=== PATIENT | male | born 1955 | race Caucasian/White ===

== ENCOUNTER 2023-10-07 14:18 | Emergency (ER) | payer OTHER, SELFPAY ==
[2023-10-07 14:27] VITALS: BP 131/82
[2023-10-07 14:48] LABS: % Basophils 0.9 % (0-2); % Eosinophils 2.3 % (0-6); % Immature Granulocytes 0.4 % (0-0.5); % Lymphocytes 34.3 % (20.5-51.1); % Monocytes 10.4 % (1.7-9.3); % Neutrophils 51.7 % (42.2-75.2); Absolute Basophils 0.1 10^3/uL (0-0.2); Absolute Eosinophils 0.2 10^3/uL (0-0.7); Absolute Lymphocytes 3.1 10^3/uL (1.2-3.4); Absolute Monocytes 0.9 10^3/uL (0.1-0.6); Absolute Neutrophils 4.7 10^3/uL (1.4-6.5); Hematocrit 40.3 % (39.0-52.0); Hemoglobin 14.7 g/dL (13.0-18.0); Mean Corp Hgb Conc. 36.5 g/dL (33.0-37.0); Mean Corpuscular Hgb 33.3 pg (27.0-31.0); Mean Corpuscular Volume 91.2 fL (80.0-94.0); Mean Platelet Volume 10.4 fL (7.4-10.4); Nucleated Red Blood Cells % 0 % (-); Platelet Count 212 10^3/uL (130-400); Red Blood Cell Count 4.42 10^6/uL (4.70-6.10); Red Cell Dist. Width 12.6 % (11.5-14.5); White Blood Cell Count 9.1 10^3/uL (4.8-10.8)
[2023-10-07 14:55] LABS: ALT (SGPT) 24 U/L (0-50); AST (SGOT) 24 U/L (17-59); Albumin 3.9 g/dl (3.5-5.0); Alkaline Phosphatase 132 U/L (38-126); Blood Urea Nitrogen 20 mg/dl (9-20); Calcium 9.4 mg/dl (8.4-10.2); Carbon Dioxide 23 mmol/L (22-30); Chloride 106 mmol/L (98-107); Glucose 156 mg/dl (70-99); Potassium 4.4 mmol/L (3.5-5.1); Sodium 139 mmol/L (135-145); Total Bilirubin 0.5 mg/dl (0.2-1.3); Total Protein 6.5 g/dl (6.3-8.2); eGFR > 60.00
[2023-10-07] MEDS: MORPHINE SULFATE IV (15:57)
[2023-10-07] MEDS: MORPHINE SULFATE 4 MG IV (16:03)
[2023-10-07 16:04] LABS: Urine Albumin Negative (Neg - Trace); Urine Bilirubin Negative (Negative); Urine Character Clear (Clear); Urine Color Yellow; Urine Glucose Negative (Negative); Urine Ketone Negative (Negative); Urine Leukocyte Negative (Negative); Urine Nitrite Negative (Negative); Urine Occult Blood Negative (Negative); Urine Urobilinogen Negative (Neg - 1+)
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
== END 2023-10-07 17:46 | disposition home or self-care (01) ==
LOC: EMR 14:18
PROVIDERS: EMERGENCY PHYSICIAN Emergency Medicine
DX: R10.9 Unspecified abdominal pain (principal); I44.1 Atrioventricular block, second degree; I25.10 Atherosclerotic heart disease of native coronary artery without angina pectoris; E78.00 Pure hypercholesterolemia, unspecified; E11.9 Type 2 diabetes mellitus without complications; F32.A Depression, unspecified; F41.9 Anxiety disorder, unspecified; G25.81 Restless legs syndrome; G47.30 Sleep apnea, unspecified; F17.200 Nicotine dependence, unspecified, uncomplicated; Z87.442 Personal history of urinary calculi; Z87.820 Personal history of traumatic brain injury; Z90.49 Acquired absence of other specified parts of digestive tract; Z95.0 Presence of cardiac pacemaker
CPT/HCPCS: 99284; 96374; 74177; 80053; 81003; 85025; Q9967

== ENCOUNTER 2023-10-30 17:34 | Emergency (ER) | payer OTHER, SELFPAY ==
[2023-10-30 17:43] VITALS: BP 137/92
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
[2023-10-30] MEDS: DECADRON 10 MG IV (19:42)
[2023-10-30] MEDS: DUONEB 3 ML INH (19:43)
[2023-10-30 19:54] LABS: % Basophils 1.1 % (0-2); % Eosinophils 1.1 % (0-6); % Immature Granulocytes 0.7 % (0-0.5); % Lymphocytes 18.8 % (20.5-51.1); % Monocytes 6.3 % (1.7-9.3); Absolute Basophils 0.1 10^3/uL (0-0.2); Absolute Eosinophils 0.1 10^3/uL (0-0.7); Absolute Immature Granulocytes 0.1 10^3/uL (0-0.05); Absolute Lymphocytes 1.3 10^3/uL (1.2-3.4); Absolute Monocytes 0.5 10^3/uL (0.1-0.6); Absolute Neutrophils 5.1 10^3/uL (1.4-6.5); Hematocrit 43.9 % (39.0-52.0); Hemoglobin 15.9 g/dL (13.0-18.0); Mean Corp Hgb Conc. 36.2 g/dL (33.0-37.0); Mean Corpuscular Hgb 32.2 pg (27.0-31.0); Mean Corpuscular Volume 88.9 fL (80.0-94.0); Mean Platelet Volume 10.4 fL (7.4-10.4); Nucleated Red Blood Cells % 0 % (-); Platelet Count 207 10^3/uL (130-400); Red Blood Cell Count 4.94 10^6/uL (4.70-6.10); Red Cell Dist. Width 12.1 % (11.5-14.5); White Blood Cell Count 7.1 10^3/uL (4.8-10.8)
[2023-10-30 19:58] LABS: ALT (SGPT) 26 U/L (0-50); AST (SGOT) 23 U/L (17-59); Albumin 4.3 g/dl (3.5-5.0); Alkaline Phosphatase 151 U/L (38-126); Blood Urea Nitrogen 16 mg/dl (9-20); Calcium 9.9 mg/dl (8.4-10.2); Carbon Dioxide 25 mmol/L (22-30); Chloride 101 mmol/L (98-107); Glucose 230 mg/dl (70-99); Potassium 4.3 mmol/L (3.5-5.1); Sodium 136 mmol/L (135-145); Total Bilirubin 0.6 mg/dl (0.2-1.3); Total Protein 7.1 g/dl (6.3-8.2); eGFR > 60.00
[2023-10-30] MEDS: MORPHINE SULFATE 4 MG IV (20:52)
[2023-10-31 00:44] VITALS: BP 132/89
== END 2023-10-31 00:45 | disposition home or self-care (01) ==
LOC: EMR 17:34
PROVIDERS: Emergency Medicine; EMERGENCY PHYSICIAN Emergency Medicine; FAMILY PHYSICIAN Internal Medicine
DX: J20.9 Acute bronchitis, unspecified (principal); E04.1 Nontoxic single thyroid nodule; I45.10 Unspecified right bundle-branch block; I44.1 Atrioventricular block, second degree; I25.10 Atherosclerotic heart disease of native coronary artery without angina pectoris; E78.00 Pure hypercholesterolemia, unspecified; E11.9 Type 2 diabetes mellitus without complications; F32.A Depression, unspecified; F41.9 Anxiety disorder, unspecified; G43.909 Migraine, unspecified, not intractable, without status migrainosus; F43.10 Post-traumatic stress disorder, unspecified; G47.30 Sleep apnea, unspecified; G25.81 Restless legs syndrome; K57.90 Diverticulosis of intestine, part unspecified, without perforation or abscess without bleeding; F17.200 Nicotine dependence, unspecified, uncomplicated; Z95.0 Presence of cardiac pacemaker; Z87.820 Personal history of traumatic brain injury; Z87.442 Personal history of urinary calculi; M43.22 Fusion of spine, cervical region; Z98.0 Intestinal bypass and anastomosis status; Z90.49 Acquired absence of other specified parts of digestive tract
CPT/HCPCS: 99285; 71275; 80053; 83880; 84484; 85025; 93005; Q9967

== ENCOUNTER 2023-11-05 13:22 | Emergency (ER) | payer OTHER, SELFPAY ==
[2023-11-05 13:27] VITALS: BP 175/89
--- NOTE | 2023-11-05 15:40 | EDRN ---
Abbi Julien [employer] in room w/ pt at this time.
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
[2023-11-05 15:53] VITALS: BMI 30.6
[2023-11-05] MEDS: DECADRON 10 MG IV (16:06)
[2023-11-05] MEDS: DILAUDID 0.5 MG IV (16:06)
[2023-11-05] MEDS: ZOFRAN 4 MG IV (16:07)
[2023-11-05 17:22] VITALS: BP 121/75
== END 2023-11-05 17:24 | disposition home or self-care (01) ==
LOC: EMR 13:22
PROVIDERS: EMERGENCY PHYSICIAN Emergency Medicine; FAMILY PHYSICIAN Internal Medicine
DX: M54.2 Cervicalgia (principal); I44.1 Atrioventricular block, second degree; I25.10 Atherosclerotic heart disease of native coronary artery without angina pectoris; E78.00 Pure hypercholesterolemia, unspecified; E11.9 Type 2 diabetes mellitus without complications; F32.A Depression, unspecified; F41.9 Anxiety disorder, unspecified; G47.30 Sleep apnea, unspecified; G25.81 Restless legs syndrome; F17.200 Nicotine dependence, unspecified, uncomplicated; Z87.442 Personal history of urinary calculi; Z87.820 Personal history of traumatic brain injury; Z90.49 Acquired absence of other specified parts of digestive tract; Z95.0 Presence of cardiac pacemaker
CPT/HCPCS: 99283; 96374; 96375; 72040

== ENCOUNTER → 2023-12-14 13:34 | Outpatient (REF) | payer OTHER, SELFPAY | LOC: MRI 13:34 | PROVIDERS: ATTENDING PHYSICIAN Orthopaedic Surgery Orthopaedic Surgery of the Spine; FAMILY PHYSICIAN Internal Medicine | DX: M54.2 Cervicalgia (principal) | CPT/HCPCS: 72141 ==

== ENCOUNTER 2024-01-13 18:41 | Emergency (ER) | payer OTHER, SELFPAY ==
[2024-01-13] VITALS (7 sets, daily range): BP systolic 118–137; BP diastolic 78–96
[2024-01-13 19:00] LABS: % Basophils 1.1 % (0-2); % Immature Granulocytes 0.6 % (0-0.5); % Lymphocytes 36.1 % (20.5-51.1); % Monocytes 8.7 % (1.7-9.3); % Neutrophils 50.5 % (42.2-75.2); Absolute Basophils 0.1 10^3/uL (0-0.2); Absolute Eosinophils 0.2 10^3/uL (0-0.7); Absolute Lymphocytes 2.6 10^3/uL (1.2-3.4); Absolute Monocytes 0.6 10^3/uL (0.1-0.6); Absolute Neutrophils 3.6 10^3/uL (1.4-6.5); Hematocrit 39.7 % (39.0-52.0); Hemoglobin 14.4 g/dL (13.0-18.0); Mean Corp Hgb Conc. 36.3 g/dL (33.0-37.0); Mean Corpuscular Hgb 32.1 pg (27.0-31.0); Mean Corpuscular Volume 88.6 fL (80.0-94.0); Mean Platelet Volume 10.6 fL (7.4-10.4); Nucleated Red Blood Cells % 0 % (-); Platelet Count 224 10^3/uL (130-400); Red Blood Cell Count 4.48 10^6/uL (4.70-6.10); Red Cell Dist. Width 12.5 % (11.5-14.5); White Blood Cell Count 7.1 10^3/uL (4.8-10.8)
[2024-01-13 19:08] LABS: INR 1.04; PT 13.4 Sec (11.4-14.6)
[2024-01-13 19:16] LABS: ALT (SGPT) 22 U/L (0-50); AST (SGOT) 20 U/L (17-59); Albumin 4.3 g/dl (3.5-5.0); Alkaline Phosphatase 152 U/L (38-126); Blood Urea Nitrogen 15 mg/dl (9-20); Calcium 9.6 mg/dl (8.4-10.2); Carbon Dioxide 25 mmol/L (22-30); Chloride 106 mmol/L (98-107); Glucose 241 mg/dl (70-99); Sodium 136 mmol/L (135-145); Total Bilirubin 0.5 mg/dl (0.2-1.3); Total Protein 7.1 g/dl (6.3-8.2); eGFR > 60.00
[2024-01-13 19:25] LABS: Troponin I < 0.012 ng/ml
[2024-01-13] MEDS: DILAUDID 0.5 MG IV (22:31)
[2024-01-13 22:57] LABS: Lipase 118 U/L (23-300)
[2024-01-13 23:06] LABS: Troponin I < 0.012 ng/ml
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
[2024-01-14 00:36] VITALS: BP 121/91
[2024-01-14 01:00] VITALS: BP 131/89
[2024-01-14 01:30] VITALS: BP 134/85
[2024-01-14 02:00] VITALS: BP 127/94
[2024-01-14 02:30] VITALS: BP 122/86
== END 2024-01-14 04:07 | disposition home or self-care (01) ==
LOC: EMR 18:41
PROVIDERS: EMERGENCY PHYSICIAN Emergency Medicine; FAMILY PHYSICIAN Internal Medicine
DX: R07.89 Other chest pain (principal); R06.02 Shortness of breath; R03.0 Elevated blood-pressure reading, without diagnosis of hypertension; I45.10 Unspecified right bundle-branch block; I44.1 Atrioventricular block, second degree; I25.10 Atherosclerotic heart disease of native coronary artery without angina pectoris; E78.00 Pure hypercholesterolemia, unspecified; E11.9 Type 2 diabetes mellitus without complications; F32.A Depression, unspecified; F41.9 Anxiety disorder, unspecified; F43.10 Post-traumatic stress disorder, unspecified; K57.92 Diverticulitis of intestine, part unspecified, without perforation or abscess without bleeding; G43.909 Migraine, unspecified, not intractable, without status migrainosus; G25.81 Restless legs syndrome; G47.30 Sleep apnea, unspecified; F17.200 Nicotine dependence, unspecified, uncomplicated; Z95.0 Presence of cardiac pacemaker; M43.22 Fusion of spine, cervical region; Z87.442 Personal history of urinary calculi; Z87.820 Personal history of traumatic brain injury; Z98.0 Intestinal bypass and anastomosis status; Z90.49 Acquired absence of other specified parts of digestive tract; Z88.8 Allergy status to other drugs, medicaments and biological substances
CPT/HCPCS: 99285; 96374; 71046; 71275; 80053; 83690; 84484; 85025; 85610; 93005; Q9967

== ENCOUNTER 2024-03-26 12:55 | Emergency (ER) | payer OTHER, SELFPAY ==
[2024-03-26 13:03] VITALS: BP 157/87
[2024-03-26 13:38] LABS: % Basophils 0.8 % (0-2); % Immature Granulocytes 0.2 % (0-0.5); % Monocytes 8.5 % (1.7-9.3); % Neutrophils 56.5 % (42.2-75.2); Absolute Basophils 0.1 10^3/uL (0-0.2); Absolute Eosinophils 0.1 10^3/uL (0-0.7); Absolute Lymphocytes 2.1 10^3/uL (1.2-3.4); Absolute Monocytes 0.6 10^3/uL (0.1-0.6); Absolute Neutrophils 3.7 10^3/uL (1.4-6.5); Hematocrit 42.1 % (39.0-52.0); Hemoglobin 15.5 g/dL (13.0-18.0); Mean Corp Hgb Conc. 36.8 g/dL (33.0-37.0); Mean Corpuscular Hgb 33.5 pg (27.0-31.0); Mean Corpuscular Volume 90.9 fL (80.0-94.0); Mean Platelet Volume 10.9 fL (7.4-10.4); Nucleated Red Blood Cells % 0 % (-); Platelet Count 181 10^3/uL (130-400); Red Blood Cell Count 4.63 10^6/uL (4.70-6.10); Red Cell Dist. Width 12.3 % (11.5-14.5); White Blood Cell Count 6.6 10^3/uL (4.8-10.8)
[2024-03-26 13:51] LABS: ALT (SGPT) 24 U/L (0-50); AST (SGOT) 23 U/L (17-59); Albumin 4.4 g/dl (3.5-5.0); Alkaline Phosphatase 95 U/L (38-126); Blood Urea Nitrogen 16 mg/dl (9-20); Calcium 9.6 mg/dl (8.4-10.2); Carbon Dioxide 22 mmol/L (22-30); Chloride 107 mmol/L (98-107); Glucose 122 mg/dl (70-99); Potassium 4.1 mmol/L (3.5-5.1); Sodium 138 mmol/L (135-145); Total Bilirubin 0.6 mg/dl (0.2-1.3); Total Protein 6.8 g/dl (6.3-8.2); eGFR > 60.00
[2024-03-26 13:59] LABS: Troponin I < 0.012 ng/ml
[2024-03-26 14:41] VITALS: BMI 28.2
[2024-03-26 14:54] VITALS: BP 164/147
[2024-03-26 15:00] VITALS: BP 111/84
[2024-03-26] MEDS: TORADOL 15 MG IV (15:00)
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
[2024-03-26] MEDS: MORPHINE SULFATE 4 MG IV (16:18)
[2024-03-26 16:35] VITALS: BP 111/84
== END 2024-03-26 18:19 | disposition home or self-care (01) ==
LOC: EMR 12:55
PROVIDERS: Emergency Medicine; EMERGENCY PHYSICIAN Emergency Medicine; FAMILY PHYSICIAN Internal Medicine
DX: R07.89 Other chest pain (principal); I44.1 Atrioventricular block, second degree; E11.9 Type 2 diabetes mellitus without complications; E78.00 Pure hypercholesterolemia, unspecified; I25.10 Atherosclerotic heart disease of native coronary artery without angina pectoris; F32.A Depression, unspecified; F41.9 Anxiety disorder, unspecified; F43.10 Post-traumatic stress disorder, unspecified; K57.90 Diverticulosis of intestine, part unspecified, without perforation or abscess without bleeding; G43.909 Migraine, unspecified, not intractable, without status migrainosus; G25.81 Restless legs syndrome; G47.30 Sleep apnea, unspecified; F17.200 Nicotine dependence, unspecified, uncomplicated; Z95.0 Presence of cardiac pacemaker; Z87.820 Personal history of traumatic brain injury; Z87.442 Personal history of urinary calculi; Z98.0 Intestinal bypass and anastomosis status; M43.22 Fusion of spine, cervical region; Z88.8 Allergy status to other drugs, medicaments and biological substances
CPT/HCPCS: 99285; 96374; 96375; 93288; 71046; 71275; 80053; 84484; 85025; 93005; Q9967

== ENCOUNTER 2024-05-21 15:01 | Emergency (ER) | payer OTHER, SELFPAY ==
[2024-05-21 15:03] VITALS: BP 155/94
[2024-05-21 15:14] VITALS: BP 149/90
[2024-05-21] MEDS: NSS 1000 IV (15:28)
[2024-05-21] MEDS: ZOFRAN 4 MG IV (15:28)
[2024-05-21] MEDS: DILAUDID 1 MG IV ×2 (15:30→16:12)
[2024-05-21 15:35] VITALS: BMI 27.9
[2024-05-21 15:40] LABS: % Basophils 1.1 % (0-2); % Eosinophils 3.4 % (0-6); % Immature Granulocytes 0.6 % (0-0.5); % Lymphocytes 36.1 % (20.5-51.1); % Monocytes 9.3 % (1.7-9.3); % Neutrophils 49.5 % (42.2-75.2); Absolute Basophils 0.1 10^3/uL (0-0.2); Absolute Eosinophils 0.3 10^3/uL (0-0.7); Absolute Immature Granulocytes 0.1 10^3/uL (0-0.05); Absolute Lymphocytes 3.1 10^3/uL (1.2-3.4); Absolute Monocytes 0.8 10^3/uL (0.1-0.6); Absolute Neutrophils 4.2 10^3/uL (1.4-6.5); Hematocrit 40.7 % (39.0-52.0); Hemoglobin 14.7 g/dL (13.0-18.0); Mean Corp Hgb Conc. 36.1 g/dL (33.0-37.0); Mean Corpuscular Hgb 32.1 pg (27.0-31.0); Mean Corpuscular Volume 88.9 fL (80.0-94.0); Mean Platelet Volume 11.2 fL (7.4-10.4); Nucleated Red Blood Cells % 0 % (-); Platelet Count 217 10^3/uL (130-400); Red Blood Cell Count 4.58 10^6/uL (4.70-6.10); Red Cell Dist. Width 12.1 % (11.5-14.5); White Blood Cell Count 8.5 10^3/uL (4.8-10.8)
[2024-05-21 15:41] LABS: Urine Albumin Negative (Neg - Trace); Urine Bilirubin Negative (Negative); Urine Character Clear (Clear); Urine Color Yellow; Urine Glucose Negative (Negative); Urine Ketone Negative (Negative); Urine Leukocyte Negative (Negative); Urine Nitrite Negative (Negative); Urine Occult Blood Negative (Negative); Urine Specific Gravity 1.005 (<1.030); Urine Urobilinogen Negative (Neg - 1+)
[2024-05-21 15:53] LABS: ALT (SGPT) 29 U/L (0-50); AST (SGOT) 21 U/L (17-59); Albumin 4.3 g/dl (3.5-5.0); Alkaline Phosphatase 106 U/L (38-126); Blood Urea Nitrogen 11 mg/dl (9-20); Calcium 9.6 mg/dl (8.4-10.2); Carbon Dioxide 24 mmol/L (22-30); Chloride 106 mmol/L (98-107); Estimated Creatinine Clearance 98 ml/min; Glucose 188 mg/dl (70-99); Potassium 4.7 mmol/L (3.5-5.1); Sodium 140 mmol/L (135-145); Total Bilirubin 0.6 mg/dl (0.2-1.3); Total Protein 6.7 g/dl (6.3-8.2); eGFR > 60.00
[2024-05-21 16:23] VITALS: BP 109/75
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
[2024-05-21] MEDS: AUGMENTIN 875 MG/125 MG 1 TABLET PO (18:30)
[2024-05-21] MEDS: DILAUDID 0.5 MG IV (18:31)
== END 2024-05-21 19:21 | disposition home or self-care (01) ==
LOC: EMR 15:01
PROVIDERS: EMERGENCY PHYSICIAN Emergency Medicine; FAMILY PHYSICIAN Internal Medicine
DX: R10.9 Unspecified abdominal pain (principal); I44.1 Atrioventricular block, second degree; I25.10 Atherosclerotic heart disease of native coronary artery without angina pectoris; E78.00 Pure hypercholesterolemia, unspecified; E11.9 Type 2 diabetes mellitus without complications; F41.8 Other specified anxiety disorders; G25.81 Restless legs syndrome; G47.30 Sleep apnea, unspecified; F17.200 Nicotine dependence, unspecified, uncomplicated; Z87.442 Personal history of urinary calculi; Z87.820 Personal history of traumatic brain injury; Z90.49 Acquired absence of other specified parts of digestive tract; Z95.0 Presence of cardiac pacemaker
CPT/HCPCS: 99284; 96374; 96375; 96376; 96361; 74176; 80053; 81003; 85025

== ENCOUNTER 2024-08-31 21:29 | Observation (INO) | payer OTHER, SELFPAY ==
[2024-08-31] VITALS (12 sets, daily range): BP systolic 102–160; BP diastolic 72–92; BMI 27.4; BMI 27.2
[2024-08-31 16:20] LABS: % Basophils 0.8 % (0-2); % Immature Granulocytes 0.3 % (0-0.5); % Lymphocytes 33.2 % (20.5-51.1); % Monocytes 10.1 % (1.7-9.3); % Neutrophils 52.6 % (42.2-75.2); Absolute Basophils 0.1 10^3/uL (0-0.2); Absolute Eosinophils 0.2 10^3/uL (0-0.7); Absolute Lymphocytes 2.4 10^3/uL (1.2-3.4); Absolute Monocytes 0.7 10^3/uL (0.1-0.6); Absolute Neutrophils 3.9 10^3/uL (1.4-6.5); Hematocrit 45.1 % (39.0-52.0); Mean Corp Hgb Conc. 35.5 g/dL (33.0-37.0); Mean Corpuscular Hgb 32.5 pg (27.0-31.0); Mean Corpuscular Volume 91.7 fL (80.0-94.0); Mean Platelet Volume 10.5 fL (7.4-10.4); Nucleated Red Blood Cells % 0 % (-); Platelet Count 197 10^3/uL (130-400); Red Blood Cell Count 4.92 10^6/uL (4.70-6.10); Red Cell Dist. Width 12.2 % (11.5-14.5); White Blood Cell Count 7.3 10^3/uL (4.8-10.8)
[2024-08-31 16:28] LABS: INR 0.93; PT 12.8 Sec (11.4-14.6)
[2024-08-31 16:42] LABS: ALT (SGPT) 29 U/L (0-50); AST (SGOT) 28 U/L (17-59); Albumin 4.8 g/dl (3.5-5.0); Alkaline Phosphatase 108 U/L (38-126); Blood Urea Nitrogen 15 mg/dl (9-20); Calcium 9.6 mg/dl (8.4-10.2); Carbon Dioxide 26 mmol/L (22-30); Chloride 102 mmol/L (98-107); Glucose 153 mg/dl (70-99); Potassium 4.7 mmol/L (3.5-5.1); Sodium 138 mmol/L (135-145); Total Bilirubin 0.6 mg/dl (0.2-1.3); Total Protein 7.6 g/dl (6.3-8.2); eGFR > 60.00
[2024-08-31 16:56] LABS: Troponin I < 0.012 ng/ml
--- NOTE | 2024-08-31 18:08 | EDRN ---
Pt states he had really bad chest pain in substernal area at 14:45 when [address] someone home from [place] at 05/20 described as pressure and radiating to L neck and L upper arm.
--- NOTE | 2024-08-31 18:12 | EDRN ---
Lisa PEREZ in room w/pt at this time.
[2024-08-31] MEDS: NITROSTAT (SUBLINGUAL) 0.4 MG SL ×3 (18:20→18:31)
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
[2024-08-31 19:39] LABS: Troponin I < 0.012 ng/ml
[2024-08-31] MEDS: MORPHINE SULFATE 4 MG IV (20:38)
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
[2024-08-31 21:51] LABS: NT-proBNP 26.8 pg/ml
[2024-08-31] MEDS: LIPITOR 40 MG PO (23:41)
[2024-08-31] MEDS: MORPHINE SULFATE 2 MG IV (23:42)
[2024-08-31 23:56] LABS: Troponin I < 0.012 ng/ml
--- NOTE | 2024-09-01 00:31 | PTCARENOTE ---
22:19 pt rec'vd from ED . pt able to transfer self to bed, tele monitored placed, pt vs stable, oriented to unit
[2024-09-01 03:15] VITALS: BP 115/73
[2024-09-01 06:00] VITALS: BMI 27.2
[2024-09-01] MEDS: MORPHINE SULFATE 2 MG IV (06:03)
[2024-09-01 07:00] VITALS: BP 140/69
[2024-09-01 07:06] LABS: Hemoglobin 15.2 g/dL (13.0-18.0); Mean Corp Hgb Conc. 36.2 g/dL (33.0-37.0); Mean Corpuscular Hgb 33.3 pg (27.0-31.0); Mean Corpuscular Volume 91.9 fL (80.0-94.0); Platelet Count 171 10^3/uL (130-400); Red Blood Cell Count 4.57 10^6/uL (4.70-6.10); Red Cell Dist. Width 12.1 % (11.5-14.5); White Blood Cell Count 6.9 10^3/uL (4.8-10.8)
[2024-09-01 07:24] LABS: Blood Urea Nitrogen 18 mg/dl (9-20); Calcium 9.1 mg/dl (8.4-10.2); Carbon Dioxide 24 mmol/L (22-30); Chloride 104 mmol/L (98-107); Estimated Creatinine Clearance 88 ml/min; Glucose 111 mg/dl (70-99); Potassium 4.4 mmol/L (3.5-5.1); Sodium 136 mmol/L (135-145); eGFR > 60.00
[2024-09-01 07:25] LABS: Troponin I < 0.012 ng/ml
--- NOTE | 2024-09-01 07:57 | W.PN.HOSP.TC ---
Addendum entered and electronically signed by Sekou Turner MD 09/01/24 15:25:
Patient with normal stress test and cardiology is cleared the patient for discharge.
Total time spent on d/c = 40 min. This included today's physical exam, progress note, review of laboratory and diagnostic data, preparation of discharge documents and prescriptions, and discussions about the pt's hospital course and discharge plan
with the patient and other medical record specialist involved in the patient's care.
Original Note:
Today's Communication/Plan
-
see plan
Assessment / Plan
Assessment / Plan
Gen: NAD, AAOx3.
Eyes: EOMI, PERRLA, no scleral icterus.
Neck: supple.
CV: RRR, +S1/S2, no m/r/g.
Resp: CTAB, no rales, wheezes, or rhonchi.
Abd: +BS, soft, NT, ND
Skin: No rashes.
Neuro: CN 2-12 intact, non-focal.
Psych: Normal mood and affect.
Chest Pain:
-Consult Cardiology
-Prior cardiac cath in 2019 with non-obstructive coronary artery disease
-Troponin negative x 4
-Continue ASA/statin
-check echo
DM2
-Patient reports he lost 35lbs and was able to come off all meds
-Check HgbA1c
Other problems:
Hyperlipidemia: Continue atorvastatin
Anxiety/PTSD: Continue Viibryd
Restless Leg Syndrome: Continue pramipexole
GERD: Continue Protonix
Tobacco Use Disorder: Encourage smoking cessation
FULL/Lovenox
Anticipated Discharge: Within 24 hours
Subjective/Interval History
-
Date of Service: September 01, 2024
No chest pain currently.
Objective Data
-
Labs:
Laboratory Results
09/01/24
06:17
WBC 6.9
Hgb 15.2
Hct 42.0
Plt Count 171
Sodium 136
Potassium 4.4
Chloride 104
Carbon Dioxide 24
BUN 18
Creatinine 1.0
Glucose 111 H
Calcium 9.1
Vital Signs:
Vital Signs
Temp Pulse Resp BP Pulse Ox
98.3 F 63 18 140/69 98
09/01/24 07:00 09/01/24 07:00 09/01/24 07:00 09/01/24 07:00 09/01/24 07:00
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
[2024-09-01] MEDS: PROTONIX 40 MG PO (09:03)
[2024-09-01] MEDS: VITAMIN D3 (cholecalciferol) 25 MCG PO (09:04)
[2024-09-01] MEDS: LOW STRENGTH ASPIRIN 81 MG PO (09:04)
[2024-09-01] MEDS: NEURONTIN 800 MG PO (09:04)
[2024-09-01 09:07] LABS: Glycohemoglobin (HgbA1c) 6.6 % (4.0-5.6)
[2024-09-01 10:41] LABS: HDL Cholesterol 24 mg/dl; LDL Cholesterol, Calculated 134 mg/dl; Total Cholesterol 204 mg/dl (50-199); Triglyceride 234 mg/dl (10-149); Very Low Density Lipoprotein 46 mg/dl (0-30)
--- NOTE | 2024-09-01 11:10 | CM ---
Met with pt at bedside
Pt reports he lives with his , son and 3 grandchildren in a 2 story home; 2 steps to enter, FF set-up
Retired, independent with ADL's, drives
DME - none
SNF/HH -denies past hx
Has ride at discharge
PCP - Chloe Mario
Pharm - [facility]
Given AVILA
Plan - anticipate home no needs
[2024-09-01 15:00] VITALS: BP 142/88
--- NOTE | 2024-09-01 15:28 | W.DCSUMMARY ---
Discharge Summary
Discharge Data
Date of Admission: 08/31/24
Date of Discharge: 09/01/24
-
Pending Results: No
Hospital Course
Primary diagnoses:
Noncardiac chest pain
Secondary diagnoses:
Type 2 diabetes mellitus
Hyperlipidemia
Anxiety
Posttraumatic stress disorder
Restless leg syndrome
Gastroesophageal reflux disease
Tobacco abuse disorder
Consults:
Cardiology
Imaging:
Echo: Normal left ventricular size and systolic function. No regional wall motion
abnormalities are seen. LV ejection fraction is 65-70% by Watkins's method of
discs. Mild concentric left ventricular hypertrophy. Normal diastolic function.
Normal right ventricular size. Normal right ventricular systolic function.
Pacer wire seen in right ventricle.
Mild mitral regurgitation.
Aortic root mildly dilated at 3.9cm.
Compared to the previous echo 08/16/21, there is no significant change.
SPECT-sestamibi exercise stress test: Exercise nuclear stress test reveals normal perfusion with no significant ischemia or scar at 11` Mets
The exercise tolerance is above average for given age and gender.
Stress Risk is low risk.
([place] Treadmill Score = +10.75)
Systolic function is normal. The ejection fraction is 53%.
Compared with the study performed on 05/24/2011, There is no significant change.
CXR: No acute cardiopulmonary process.
Hospital course: 69-year-old male who presented yesterday with a chief complaint of chest pain as outlined in the H&P done on admission. The patient had 4 negative troponins. He had an echocardiogram above which was notable for an ejection
fraction of 65 to 70% and was without significant change from his echo in August 2021. Patient had an exercise nuclear stress test that did not show any stress-induced/reversible ischemia. Patient was seen in consultation by cardiology and
cleared for discharge.
Discharge Plan
-
Patient Disposition: Home (Routine Discharge)
Discharge Diagnosis/Procedures: Noncardiac chest pain
Condition: Good
Diet: Low Cholesterol, Low Sodium and Diabetic, Carb Controlled
Activity: No restrictions
Driving Restrictions: As prior to admission
Bathing Restrictions: None
Referrals:
Daisy Horne PA-C [Specified Professional Personl] - 10/01/24 8:20 am (You have cardiology follow-up with Daisy Horne PA-C on October 01 at 8:20 AM in [address] [facility] [address] [facility] if you are unable to make this appointment please call [phone] to
reschedule)
Chloe Mario MD [Family Provider] - in less than 1 week
Prescriptions:
Continued
pramipexole 0.5 MG tablet
0.5 mg PO HSPRN PRN (Reason: restless legs)
atorvastatin 40 MG tablet
40 mg PO HS
buspirone 10 mg Tablet
20 mg PO TID
pantoprazole [Protonix] 40 mg tablet,delayed release (DR/EC)
40 mg PO BID
cetirizine [Zyrtec] 10 mg Tablet
10 mg PO DAILYPRN PRN (Reason: allergies)
sumatriptan succinate 50 mg Tablet
50 mg PO DAILYPRN PRN (Reason: headache)
therapeutic multivitamin Tablet
1 tab PO DAILY
sildenafil 100 mg Tablet
100 mg PO DAILYPRN PRN (Reason: ed)
gabapentin 800 mg Tablet
800 mg PO BID
gabapentin 800 mg Tablet
400 mg PO NOON
fluticasone propionate 50 mcg/actuation [place],Suspension
1 spray INTRANASAL DAILYPRN PRN (Reason: congestion)
eszopiclone [Lunesta] 1 mg Tablet
1 mg PO HSPRN PRN (Reason: sleep)
cholecalciferol (vitamin D3) [Vitamin D3] 25 mcg (1,000 unit) Tablet
25 mcg PO DAILY
vilazodone [Viibryd] 40 mg Tablet
40 mg PO DAILY
albuterol sulfate 90 mcg/actuation HFA aerosol inhaler
2 puff inhalation R Q6HPRN PRN (Reason: shortness of breath or wheezing)
Discharge Orders:
Discharge Patient (As Directed); Ordered 09/01/24
Ordered By: Sekou Turner
Discharge Date and Time
Print Language: AZERBAIJANI
== END 2024-09-01 16:20 | disposition home or self-care (01) ==
LOC: 2 SOUTH 21:29
PROVIDERS: Clinical Nurse Specialist Family Health; Emergency Medicine; Physician Assistant Medical; ADMITTING PHYSICIAN Internal Medicine; ATTENDING PHYSICIAN Internal Medicine; CONSULT PHYSICIAN Internal Medicine Cardiovascular Disease; EMERGENCY PHYSICIAN Emergency Medicine; FAMILY PHYSICIAN Internal Medicine
DX: R07.89 Other chest pain (principal); M79.602 Pain in left arm; R68.84 Jaw pain; R19.7 Diarrhea, unspecified; R42 Dizziness and giddiness; G47.33 Obstructive sleep apnea (adult) (pediatric); I25.10 Atherosclerotic heart disease of native coronary artery without angina pectoris; G25.81 Restless legs syndrome; E78.00 Pure hypercholesterolemia, unspecified; E11.9 Type 2 diabetes mellitus without complications; M54.2 Cervicalgia; F32.A Depression, unspecified; F41.9 Anxiety disorder, unspecified; F43.10 Post-traumatic stress disorder, unspecified; F17.200 Nicotine dependence, unspecified, uncomplicated; I45.10 Unspecified right bundle-branch block; Q07.00 Arnold-Chiari syndrome without spina bifida or hydrocephalus; K21.9 Gastro-esophageal reflux disease without esophagitis; G89.29 Other chronic pain; Z82.41 Family history of sudden cardiac death; Z87.820 Personal history of traumatic brain injury; Z87.442 Personal history of urinary calculi; I34.0 Nonrheumatic mitral (valve) insufficiency; Z90.49 Acquired absence of other specified parts of digestive tract; Z95.0 Presence of cardiac pacemaker; Z98.1 Arthrodesis status; Z79.4 Long term (current) use of insulin; Z88.8 Allergy status to other drugs, medicaments and biological substances
CPT/HCPCS: 71046; 78452; 80048; 80053; 80061; 83036; 83880; 84484; 85025; 85027; 85610; 93005; 93017; 93306; 96374; 99285; A9500; G0378

== ENCOUNTER 2024-11-12 19:48 | Emergency (ER) | payer OTHER, SELFPAY ==
[2024-11-12 19:49] VITALS: BP 146/80
[2024-11-12 20:00] VITALS: BP 132/74
[2024-11-12] MEDS: TORADOL 15 MG IV (20:35)
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
== END 2024-11-12 20:36 | disposition home or self-care (01) ==
LOC: EMR 19:48
PROVIDERS: EMERGENCY PHYSICIAN Emergency Medicine
DX: S20.212A Contusion of left front wall of thorax, initial encounter (principal); W01.198A Fall on same level from slipping, tripping and stumbling with subsequent striking against other object, initial encounter; I25.10 Atherosclerotic heart disease of native coronary artery without angina pectoris; E78.00 Pure hypercholesterolemia, unspecified; E11.9 Type 2 diabetes mellitus without complications; F17.200 Nicotine dependence, unspecified, uncomplicated; G47.30 Sleep apnea, unspecified; Z87.820 Personal history of traumatic brain injury; Z95.0 Presence of cardiac pacemaker
CPT/HCPCS: 96374; 99284; 71101

== ENCOUNTER 2024-12-05 09:34 | Emergency (ER) | payer OTHER, SELFPAY ==
[2024-12-05 09:45] VITALS: BP 172/96
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
[2024-12-05 10:57] VITALS: BP 149/88
[2024-12-05 10:58] VITALS: BMI 27.1
[2024-12-05 11:00] VITALS: BP 142/92
[2024-12-05 11:06] LABS: % Eosinophils 2.8 % (0-6); % Immature Granulocytes 0.3 % (0-0.5); % Monocytes 10.5 % (1.7-9.3); % Neutrophils 56.4 % (42.2-75.2); Absolute Basophils 0.1 10^3/uL (0-0.2); Absolute Eosinophils 0.2 10^3/uL (0-0.7); Absolute Lymphocytes 2.1 10^3/uL (1.2-3.4); Absolute Monocytes 0.7 10^3/uL (0.1-0.6); Hematocrit 42.8 % (39.0-52.0); Hemoglobin 15.6 g/dL (13.0-18.0); Mean Corp Hgb Conc. 36.4 g/dL (33.0-37.0); Mean Corpuscular Hgb 32.9 pg (27.0-31.0); Mean Corpuscular Volume 90.3 fL (80.0-94.0); Mean Platelet Volume 10.7 fL (7.4-10.4); Nucleated Red Blood Cells % 0 % (-); Platelet Count 188 10^3/uL (130-400); Red Blood Cell Count 4.74 10^6/uL (4.70-6.10); Red Cell Dist. Width 11.9 % (11.5-14.5); White Blood Cell Count 7.1 10^3/uL (4.8-10.8)
[2024-12-05 11:20] LABS: Blood Urea Nitrogen 13 mg/dl (9-20); Calcium 9.7 mg/dl (8.4-10.2); Carbon Dioxide 25 mmol/L (22-30); Chloride 106 mmol/L (98-107); D-Dimer 0.29 ug/mlFEU (0.00-0.50); Estimated Creatinine Clearance 98 ml/min; Glucose 151 mg/dl (70-99); Potassium 4.3 mmol/L (3.5-5.1); Sodium 138 mmol/L (135-145); eGFR > 60.00
[2024-12-05 11:26] LABS: COVID-19 Antigen Negative (Negative)
[2024-12-05 11:31] LABS: Troponin I < 0.012 ng/ml
[2024-12-05 13:52] VITALS: BP 154/87
[2024-12-05 13:55] VITALS: BP 154/87
[2024-12-05 14:07] VITALS: BP 154/87
== END 2024-12-05 14:10 | disposition home or self-care (01) ==
LOC: EMR 09:34
PROVIDERS: EMERGENCY PHYSICIAN Emergency Medicine; FAMILY PHYSICIAN Family Medicine
DX: J40 Bronchitis, not specified as acute or chronic (principal); R03.0 Elevated blood-pressure reading, without diagnosis of hypertension; Z11.52 Encounter for screening for COVID-19; Z95.0 Presence of cardiac pacemaker; F17.200 Nicotine dependence, unspecified, uncomplicated
CPT/HCPCS: 99285; 93288; 71046; 80048; 84484; 85025; 85379; 87502; 87811; 93005

== ENCOUNTER 2025-03-23 20:58 | Emergency (ER) | payer OTHER, SELFPAY ==
[2025-03-23 21:00] VITALS: BP 167/98
[2025-03-23 21:29] LABS: Hematocrit 41.6 % (39.0-52.0); Hemoglobin 15.2 g/dL (13.0-18.0); Mean Corp Hgb Conc. 36.5 g/dL (33.0-37.0); Mean Corpuscular Volume 91.0 fL (80.0-94.0); Nucleated Red Blood Cells % 0 % (-); Platelet Count 226 10^3/uL (130-400); Red Cell Dist. Width 12.0 % (11.5-14.5)
[2025-03-23 22:11] LABS: ALT (SGPT) 28 U/L (0-50); AST (SGOT) 18 U/L (17-59); Albumin 4.4 g/dl (3.5-5.0); Alkaline Phosphatase 135 U/L (38-126); Blood Urea Nitrogen 15 mg/dl (9-20); Calcium 9.3 mg/dl (8.4-10.2); Carbon Dioxide 26 mmol/L (22-30); Chloride 106 mmol/L (98-107); Glucose 291 mg/dl (70-99); Potassium 4.0 mmol/L (3.5-5.1); Sodium 137 mmol/L (135-145); Total Protein 7.1 g/dl (6.3-8.2); eGFR > 60.00
[2025-03-23 22:14] LABS: Troponin I < 0.012 ng/ml
[2025-03-23 23:33] VITALS: BP 121/94
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
[2025-03-24] VITALS: BP 131/82
[2025-03-24 00:48] VITALS: BMI 27.0
[2025-03-24 01:00] VITALS: BP 116/74
== END 2025-03-24 02:54 | disposition home or self-care (01) ==
LOC: EMR 20:58
PROVIDERS: EMERGENCY PHYSICIAN Emergency Medicine; FAMILY PHYSICIAN Internal Medicine
DX: R20.2 Paresthesia of skin (principal); R20.0 Anesthesia of skin; R42 Dizziness and giddiness; R11.0 Nausea; G25.81 Restless legs syndrome; I25.10 Atherosclerotic heart disease of native coronary artery without angina pectoris; I44.1 Atrioventricular block, second degree; E78.00 Pure hypercholesterolemia, unspecified; E11.9 Type 2 diabetes mellitus without complications; F32.A Depression, unspecified; F41.9 Anxiety disorder, unspecified; F43.10 Post-traumatic stress disorder, unspecified; K57.92 Diverticulitis of intestine, part unspecified, without perforation or abscess without bleeding; G43.909 Migraine, unspecified, not intractable, without status migrainosus; G47.30 Sleep apnea, unspecified; F17.200 Nicotine dependence, unspecified, uncomplicated; M43.22 Fusion of spine, cervical region; Z95.0 Presence of cardiac pacemaker; Z87.820 Personal history of traumatic brain injury; Z87.442 Personal history of urinary calculi; Z88.8 Allergy status to other drugs, medicaments and biological substances
CPT/HCPCS: 99284; 70450; 80053; 84484; 85025; 93005

== ENCOUNTER 2025-04-02 17:32 | Emergency (ER) | payer OTHER, SELFPAY ==
[2025-04-02 17:37] VITALS: BP 111/80
[2025-04-02 17:53] LABS: Glucose - Point of Care 256 mg/dl (70-99)
[2025-04-02 18:11] LABS: Urine Character Clear (Clear)
[2025-04-02 18:12] LABS: Hematocrit 40.8 % (39.0-52.0); Hemoglobin 15.0 g/dL (13.0-18.0); Mean Corp Hgb Conc. 36.8 g/dL (33.0-37.0); Mean Corpuscular Volume 90.1 fL (80.0-94.0); Nucleated Red Blood Cells % 0 % (-); Platelet Count 192 10^3/uL (130-400); Red Cell Dist. Width 11.9 % (11.5-14.5)
[2025-04-02 18:20] LABS: Urine Red Blood Cell 0-2 /HPF (0-2); Urine Squamous Cell 0-2 /LPF (Few); Urine White Cell 0-2 /HPF (0-5)
[2025-04-02 18:23] LABS: ALT (SGPT) 25 U/L (0-50); AST (SGOT) 19 U/L (17-59); Albumin 4.2 g/dl (3.5-5.0); Alkaline Phosphatase 128 U/L (38-126); Blood Urea Nitrogen 14 mg/dl (9-20); Calcium 9.4 mg/dl (8.4-10.2); Carbon Dioxide 25 mmol/L (22-30); Chloride 107 mmol/L (98-107); Glucose 272 mg/dl (70-99); Potassium 4.0 mmol/L (3.5-5.1); Sodium 137 mmol/L (135-145); Total Protein 6.6 g/dl (6.3-8.2); eGFR > 60.00
[2025-04-02 18:50] VITALS: BP 113/77; BMI 27.4
[2025-04-02] MEDS: NSS 1000 IV (19:33)
[2025-04-02] MEDS: NOVOLIN R 8 UNITS SC (19:36)
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
[2025-04-02 19:39] LABS: Glucose - Point of Care 277 mg/dl (70-99)
[2025-04-02 20:40] VITALS: BP 140/85
[2025-04-02] MEDS: MAALOX 40 PO (20:41)
[2025-04-02] MEDS: PROTONIX IV 40 MG IV (20:44)
[2025-04-02 21:23] LABS: Glucose - Point of Care 194 mg/dl (70-99)
[2025-04-02 21:46] VITALS: BP 167/99
== END 2025-04-02 21:49 | disposition home or self-care (01) ==
LOC: EMR 17:32
PROVIDERS: Student in an Organized Health Care Education/Training Program; EMERGENCY PHYSICIAN Emergency Medicine; FAMILY PHYSICIAN Internal Medicine
DX: E11.65 Type 2 diabetes mellitus with hyperglycemia (principal); E78.00 Pure hypercholesterolemia, unspecified; G47.30 Sleep apnea, unspecified; I25.10 Atherosclerotic heart disease of native coronary artery without angina pectoris; Z87.820 Personal history of traumatic brain injury; F17.200 Nicotine dependence, unspecified, uncomplicated; Z95.0 Presence of cardiac pacemaker
CPT/HCPCS: 96374; 96361; 96372; 99284; 80053; 81003; 81015; 82962; 85025; 85652

== ENCOUNTER 2025-05-14 13:55 | Emergency (ER) | payer OTHER, SELFPAY ==
[2025-05-14 13:57] VITALS: BP 161/90
[2025-05-14 14:13] VITALS: BMI 26.6
[2025-05-14] MEDS: ZOFRAN ODT (ORALLY DISINTEGRATING) 4 MG PO (14:29)
[2025-05-14] MEDS: TYLENOL 650 MG PO (14:30)
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
[2025-05-14 16:23] VITALS: BP 139/80
== END 2025-05-14 16:24 | disposition home or self-care (01) ==
LOC: EMR 13:55
PROVIDERS: EMERGENCY PHYSICIAN Emergency Medicine; FAMILY PHYSICIAN Internal Medicine
DX: S01.111A Laceration without foreign body of right eyelid and periocular area, initial encounter (principal); S06.0XAA Concussion with loss of consciousness status unknown, initial encounter; R03.0 Elevated blood-pressure reading, without diagnosis of hypertension; E11.9 Type 2 diabetes mellitus without complications; I25.10 Atherosclerotic heart disease of native coronary artery without angina pectoris; I44.1 Atrioventricular block, second degree; E78.00 Pure hypercholesterolemia, unspecified; G47.30 Sleep apnea, unspecified; G25.81 Restless legs syndrome; F41.9 Anxiety disorder, unspecified; F32.A Depression, unspecified; F43.10 Post-traumatic stress disorder, unspecified; F17.200 Nicotine dependence, unspecified, uncomplicated; Z95.0 Presence of cardiac pacemaker; Z87.820 Personal history of traumatic brain injury; W22.8XXA Striking against or struck by other objects, initial encounter; Y99.0 Civilian activity done for income or pay
CPT/HCPCS: 99284; 12011; 70450; 72125

== ENCOUNTER 2025-08-01 22:01 | Emergency (ER) | payer OTHER, SELFPAY ==
[2025-08-01 22:03] VITALS: BP 157/84
[2025-08-01] MEDS: TORADOL 15 MG IM (23:29)
[2025-08-01] MEDS: LIDOCAINE 4% PATCH 1 PATCH TOPICAL (23:29)
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
[2025-08-02 01:26] VITALS: BP 150/85
== END 2025-08-02 01:29 | disposition home or self-care (01) ==
LOC: EMR 22:01
PROVIDERS: EMERGENCY PHYSICIAN Student in an Organized Health Care Education/Training Program; FAMILY PHYSICIAN Internal Medicine
DX: R07.89 Other chest pain (principal); R03.0 Elevated blood-pressure reading, without diagnosis of hypertension; E11.9 Type 2 diabetes mellitus without complications; I25.10 Atherosclerotic heart disease of native coronary artery without angina pectoris; I44.1 Atrioventricular block, second degree; E78.00 Pure hypercholesterolemia, unspecified; G47.30 Sleep apnea, unspecified; F41.9 Anxiety disorder, unspecified; F32.A Depression, unspecified; F43.10 Post-traumatic stress disorder, unspecified; G43.909 Migraine, unspecified, not intractable, without status migrainosus; G25.81 Restless legs syndrome; F17.200 Nicotine dependence, unspecified, uncomplicated; Z95.0 Presence of cardiac pacemaker; Z87.820 Personal history of traumatic brain injury
CPT/HCPCS: 99284; 96372; 71250; 93005

== ENCOUNTER 2025-08-19 16:35 | Emergency (ER) | payer OTHER, SELFPAY ==
[2025-08-19 16:41] VITALS: BP 146/83
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
[2025-08-19 17:44] VITALS: BMI 24.4
== END 2025-08-19 18:22 | disposition home or self-care (01) ==
LOC: EMR 16:35
PROVIDERS: EMERGENCY PHYSICIAN Student in an Organized Health Care Education/Training Program; FAMILY PHYSICIAN Internal Medicine
DX: F32.A Depression, unspecified (principal); E11.9 Type 2 diabetes mellitus without complications; I25.10 Atherosclerotic heart disease of native coronary artery without angina pectoris; I44.1 Atrioventricular block, second degree; E78.00 Pure hypercholesterolemia, unspecified; G47.30 Sleep apnea, unspecified; F41.9 Anxiety disorder, unspecified; F43.10 Post-traumatic stress disorder, unspecified; G43.909 Migraine, unspecified, not intractable, without status migrainosus; G25.81 Restless legs syndrome; F17.200 Nicotine dependence, unspecified, uncomplicated; Z63.8 Other specified problems related to primary support group; Z59.869 Financial insecurity, unspecified; Z79.84 Long term (current) use of oral hypoglycemic drugs; Z95.0 Presence of cardiac pacemaker; Z87.820 Personal history of traumatic brain injury
CPT/HCPCS: 99283

== ENCOUNTER 2025-08-20 22:22 | Emergency (ER) | payer OTHER, SELFPAY ==
[2025-08-20 22:24] VITALS: BP 127/78
[2025-08-20 22:28] LABS: Glucose - Point of Care 78 mg/dl (70-99)
[2025-08-20 23:06] VITALS: BP 117/75
[2025-08-20 23:23] VITALS: BMI 24.2
[2025-08-20 23:25] LABS: Hematocrit 37.5 % (39.0-52.0); Hemoglobin 13.5 g/dL (13.0-18.0); Mean Corp Hgb Conc. 36.0 g/dL (33.0-37.0); Mean Corpuscular Volume 89.7 fL (80.0-94.0); Nucleated Red Blood Cells % 0 % (-); Platelet Count 179 10^3/uL (130-400); Red Cell Dist. Width 12.7 % (11.5-14.5)
[2025-08-21] VITALS: BP 112/76
[2025-08-21 00:03] LABS: ALT (SGPT) 31 U/L (0-50); AST (SGOT) 42 U/L (17-59); Albumin 4.1 g/dl (3.5-5.0); Alkaline Phosphatase 94 U/L (38-126); Blood Urea Nitrogen 20 mg/dl (9-20); Calcium 9.3 mg/dl (8.4-10.2); Carbon Dioxide 24 mmol/L (22-30); Chloride 107 mmol/L (98-107); Estimated Creatinine Clearance 87 ml/min; Glucose 73 mg/dl (70-99); Potassium 4.0 mmol/L (3.5-5.1); Sodium 137 mmol/L (135-145); Total Protein 6.6 g/dl (6.3-8.2); eGFR > 60.00
[2025-08-21 01:00] VITALS: BP 104/64
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
[2025-08-21 02:00] VITALS: BP 133/71
== END 2025-08-21 02:52 | disposition home or self-care (01) ==
LOC: EMR 22:22
PROVIDERS: EMERGENCY PHYSICIAN Student in an Organized Health Care Education/Training Program; FAMILY PHYSICIAN Internal Medicine
DX: R42 Dizziness and giddiness (principal); E11.9 Type 2 diabetes mellitus without complications; I25.10 Atherosclerotic heart disease of native coronary artery without angina pectoris; I44.1 Atrioventricular block, second degree; E78.00 Pure hypercholesterolemia, unspecified; G47.30 Sleep apnea, unspecified; F41.9 Anxiety disorder, unspecified; F32.A Depression, unspecified; F43.10 Post-traumatic stress disorder, unspecified; G25.81 Restless legs syndrome; F17.200 Nicotine dependence, unspecified, uncomplicated; Z79.84 Long term (current) use of oral hypoglycemic drugs; Z95.0 Presence of cardiac pacemaker; Z87.820 Personal history of traumatic brain injury
CPT/HCPCS: 99284; 80053; 82962; 85025; 93005